=== PATIENT | male | born 1990 | race Caucasian/White ===

== ENCOUNTER 2017-06-13 20:35 | Emergency (ER) | payer MEDICAID ==
[2017-06-13] MEDS: BENOXINATE HCL/FLUORESCEIN SOD 5 ML OPHTH LEFT EYE (00:31)
[2017-06-13] MEDS ORDERED: KETOROLAC 15 MG INJ IV (21:50)
[2017-06-13] MEDS ORDERED: METOCLOPRAMIDE 10 MG INJ IV (22:00)
[2017-06-13] MEDS ORDERED: DIPHENHYDRAMINE 50 MG INJ IV (22:00)
[2017-06-13] MEDS: IBUPROFEN 600 MG TAB PO (22:24)
[2017-06-13] MEDS: HYDROCODONE/APAP (5/325) TAB PO (22:25)
== END 2017-06-14 01:31 | disposition home or self-care (01) ==
LOC: FTE 06-14 01:31
DX: H20.9 Unspecified iridocyclitis (principal)
CPT/HCPCS: 76536; 99284-25

== ENCOUNTER 2017-08-02 19:11 | Emergency (ER) | payer MEDICAID ==
[2017-08-02 20:26] LABS: URINE BLOOD (Dip) POC Negative (NEGATIVE); URINE GLUCOSE (Dip) POC Negative (NEGATIVE); URINE KETONES (Dip) POC Negative (NEGATIVE); URINE LEUKOCYTE EST (Dip) POC 1+ (NEGATIVE); URINE NITRITE (Dip) POC Negative (NEGATIVE); URINE TOTAL PROTEIN POC Negative (NEGATIVE)
[2017-08-02] MEDS: AZITHROMYCIN 250 MG TAB PO (20:27)
[2017-08-02] MEDS: CEFTRIAXONE 1 GM INJ IM (20:27)
== END 2017-08-02 20:43 | disposition home or self-care (01) ==
LOC: FTE 19:11
DX: N34.2 Other urethritis (principal); A74.9 Chlamydial infection, unspecified
CPT/HCPCS: 81003; 87591; 96372; 99284-25